=== PATIENT | male | born 1955 | race Caucasian/White ===

== ENCOUNTER → 2019-11-05 | Outpatient (CLI) | payer OTHER | END | disposition home or self-care (01) | LOC: LAB 09:29 | DX: Z12.5 Encounter for screening for malignant neoplasm of prostate (principal) ==

== ENCOUNTER → 2020-07-14 | Outpatient (CLI) | payer MEDICARE ==
--- NOTE | 2020-07-14 10:54 | NUR ---
INFORMED SIGNED CONSENT OBTAINED FOR CGXT WITH DR HERNANDEZ. RESTING EKG NSR HR 64 BP 132/84 IN SUPINE POSITION, STANDING HR 59 BP 152/86. PT COMPLETED 10:01 OF A PALLAVI PROTOCOL WITH PT COMPLETING 1:01 OF STAFE IV AT 4.2 MPH AND A 16% GRADE. PT REACHED A PEAK HR OF 159 WHICH REPRESENTS 102% OF PREDICTED MAXIMUM AND A PEAK BP OF 194/76. NO ARRYTHMIAS OR ST CHANGES NOTED. TEST TERMINATED TO FATIGUE. LAST RECOVERY HR OF 95 BP 142/78. PT IN STABLE CONDITION, AWAITING NUCLEAR IMAGES.
== END | disposition home or self-care (01) ==
LOC: CARD 00:31
PROVIDERS: ATTEND Family Medicine
DX: R07.2 Precordial pain (principal); R20.2 Paresthesia of skin

== ENCOUNTER → 2023-06-15 | Outpatient (CLI) | payer MEDICARE | END | disposition home or self-care (01) | LOC: RAD 09:21 | PROVIDERS: ATTEND Family Medicine | DX: M51.36 Other intervertebral disc degeneration, lumbar region (principal); M48.061 Spinal stenosis, lumbar region without neurogenic claudication; M54.50 Low back pain, unspecified ==